=== PATIENT | male | born 1950 | race Caucasian/White ===

== ENCOUNTER 2017-07-19 07:35 | Day surgery (SDC) | payer OTHER, SELFPAY ==
[2017-07-19 08:16] VITALS: BP 150/88; PULSE 68; RESP 15; TEMP 35.9; O2SAT 96; BMI 29.9
[2017-07-19] MEDS: SODIUM CHLORIDE 0.9% 1,000 ML 200 ML IV (08:35)
--- NOTE | 2017-07-19 09:39 | PM.HP.1 ---
History of Present Illness Date Patient Seen: 07/19/17 Time Patient Seen: 09:21 Chief complaint: colonoscopy [id number] Narrative: Very pleasant 66-year-old man here for screening colonoscopy. He denies any problems or symptoms related to the function of his GI tract. He reports his last colonoscopy was approximately 7 years ago Patient History Family & Social History Social History: household members spouse Meds Home Medications Medication Instructions Recorded Confirmed Type aspirin [Aspir-81] 81 mg PO DAILY 07/18/17 07/19/17 History atorvastatin 10 mg PO DAILY 07/18/17 07/19/17 History bupropion HCl 150 mg PO QAM 07/18/17 07/19/17 History naproxen 250 mg PO TID 07/18/17 07/19/17 History omeprazole 20 mg PO DAILY 07/18/17 07/19/17 History Allergies Allergy/AdvReac Type Severity Reaction Status Date / Time No Known Allergies Allergy Uncoded 05/16/17 13:06 Review of Systems Review of Systems All systems reviewed & are unremarkable except as noted in HPI and below Exam Vital Signs (past 8 hours): Vital Signs - 8 hr 07/19/17 08:16 Temperature 96.6 F L Pulse Rate 68 Respiratory Rate 15 Blood Pressure 150/88 H Pulse Oximetry 96 Pulse Oximetry 96 Oxygen Delivery Method Room Air Narrative Exam Narrative: Very pleasant well-nourished well-developed gentleman in no distress HEENT: Normocephalic and atraumatic, pupils equal round reactive to light accommodation with anicteric sclera Lungs: Clear bilaterally Heart: Regular rate and rhythm Abdomen: Soft, nontender, active bowel sounds Extremities: Warm well perfused Assessment & Plan Plan: Assessment/Plan Narrative: Very pleasant 66-year-old gentleman with no family history of colon cancer and no personal history of polyps here for screening colonoscopy. We discussed risks and benefits of the procedure the patient expressed a desire to continue
--- NOTE | 2017-07-19 09:42 | P.HP_ITS ---
History of Present Illness Date Patient Seen: 07/19/17 Time Patient Seen: 09:21 Chief complaint: colonoscopy [id number] Narrative: Very pleasant 66-year-old man here for screening colonoscopy. He denies any problems or symptoms related to the function of his GI tract. He reports his last colonoscopy was approximately 7 years ago Patient History Family & Social History Social History: household members spouse Meds Home Medications Medication Instructions Recorded Confirmed Type aspirin [Aspir-81] 81 mg PO DAILY 07/18/17 07/19/17 History atorvastatin 10 mg PO DAILY 07/18/17 07/19/17 History bupropion HCl 150 mg PO QAM 07/18/17 07/19/17 History naproxen 250 mg PO TID 07/18/17 07/19/17 History omeprazole 20 mg PO DAILY 07/18/17 07/19/17 History Allergies Allergy/AdvReac Type Severity Reaction Status Date / Time No Known Allergies Allergy Uncoded 05/16/17 13:06 Review of Systems Review of Systems All systems reviewed & are unremarkable except as noted in HPI and below Exam Vital Signs (past 8 hours): Vital Signs - 8 hr 3 07/19/17 08:16 Temperature 96.6 F L Pulse Rate 68 Respiratory Rate 15 Blood Pressure 150/88 H Pulse Oximetry 96 Pulse Oximetry 96 Oxygen Delivery Method Room Air Narrative Exam Narrative: Very pleasant well-nourished well-developed gentleman in no distress HEENT: Normocephalic and atraumatic, pupils equal round reactive to light accommodation with anicteric sclera Lungs: Clear bilaterally Heart: Regular rate and rhythm Abdomen: Soft, nontender, active bowel sounds Extremities: Warm well perfused Assessment & Plan Plan: Assessment/Plan Narrative: Very pleasant 66-year-old gentleman with no family history of colon cancer and no personal history of polyps here for screening colonoscopy. We discussed risks and benefits of the procedure the patient expressed a desire to continue
[2017-07-19] MEDS: fentaNYL 250 MCG/5 ML INJ IV (09:56)
[2017-07-19] MEDS: MIDAZOLAM 5 MG/5 ML VIAL IV (09:57)
--- NOTE | 2017-07-19 10:06 | PM.OP.1 ---
Operative Date/Time/Diagnoses - Date of procedure: 07/19/17 Time of procedure: 10:06 Post-op diagnosis: same Procedure & Clinicians Procedure: Colonoscopy to the cecum Same procedure as scheduled: Yes Indications: Last colonoscopy 7 years ago Surgeon: Cindy Contreras Click Yes if Unassisted: Yes Anesthesia Type: Sedation (Versed 5 mg, fentanyl 200 mcg) Operative Notes Findings: 1. Excellent prep 2. No polyps or mass lesions 3. No AV malformations 4. Minimal diverticulosis limited the sigmoid region 5. Grade 1-2 internal hemorrhoids Closure Type: not applicable Specimen(s): none sent Procedure in detail: After obtaining informed consent, the patient was brought to the GI suite and placed in the left lateral decubitus position on the examination table. After placement of appropriate monitors, the patient was given incremental doses of Versed and Fentanyl until an appropriate level of sedation was achieved. A time out was held per SCOAP protocol. A digital rectal examination was performed and did not reveal any masses or obstructing lesions. The colonoscope was gently passed into the patient's anus and the entire colon navigated to the level of the cecum with minimal difficulty. Once in the cecum, the scope was withdrawn being sure to go before and beyond all mucosal folds and prominences and get an excellent examination. The findings are noted above. At the level of the rectal vault, the scope was retroflexed and the internal anal canal was examined. The scope was straightened and air aspirated from the colon. The instrument was removed from the patient's body and the procedure was concluded. The patient was allowed to awaken from sedation without difficulty and taken to the post-anesthesia care unit in good condition. Total sedation time 18 min Total withdrawal time 12 min Complications: none Condition: stable Disposition: PACU Plan for aftercare: 1. Discharge to home 2. Plan for next colonoscopy in 10 years or as clinically indicated
[2017-07-19 10:07] VITALS: BP 113/73; PULSE 65; RESP 10; TEMP 36.2; O2SAT 96
[2017-07-19 10:12] VITALS: BP 109/70; PULSE 60; RESP 8; O2SAT 95
[2017-07-19 10:17] VITALS: BP 116/74; PULSE 62; RESP 10; TEMP 36.1; O2SAT 96
[2017-07-19 10:25] VITALS: BP 130/83; PULSE 69; RESP 11; TEMP 36.2; O2SAT 96
[2017-07-19 10:44] VITALS: BP 124/83; PULSE 69; RESP 18; TEMP 36.2; O2SAT 95
== END 2017-07-19 10:50 | disposition home or self-care (01) ==
PROVIDERS: Family Provider Family Medicine; PCP Family Medicine; Visit Provider Surgery
PROC: 0DJD8ZZ Inspection of Lower Intestinal Tract, Via Natural or Artificial Opening Endoscopic (ICD-10-PCS; CPT 45378; principal; 2017-07-19 08:45)
DX: Z12.11 Encounter for screening for malignant neoplasm of colon (principal); K57.30 Diverticulosis of large intestine without perforation or abscess without bleeding; K64.1 Second degree hemorrhoids
CPT/HCPCS: G0121; 99152; J2250; J3010

== ENCOUNTER → 2018-09-06 09:42 | Outpatient (CLI) | payer OTHER, SELFPAY ==
[2018-09-06 10:02] LABS: Bacteria Urine None Seen
[2018-09-06 10:59] LABS: Appearance Urine UA CLEAR; Bilirubin Urine UA NEGATIVE (NEGATIVE); Color Urine UA YELLOW; Glucose Urine UA NEGATIVE (Negative); Ketones Urine UA NEGATIVE (NEGATIVE); Leukocyte Esterase Urine UA TRACE (NEGATIVE); Nitrite Urine UA NEGATIVE (Negative); Occult Blood Urine UA NEGATIVE (Negative); Protein Urine UA NEGATIVE (Negative); Specific Gravity Urine UA 1.015 (1.000-1.035); Urobilinogen Urine UA 0.2 E.U./dL (0.2)
[2018-09-06 11:01] LABS: Add Manual Diff / Slide Review NO; Basophils Absolute Auto 0 /uL (0-100); Basophils Percent Auto 0.7 % (0-2); Eosinophils Absolute Auto 100 /uL (0-450); Eosinophils Percent Auto 3.4 % (2-4); Hematocrit 40.2 % (41-53); Hemoglobin 13.7 g/dL (13.5-17.5); Lymphocytes Absolute Auto 1200 /uL (1100-4500); Lymphocytes Percent Auto 32.4 % (25-40); Mean Corpuscular Hemoglobin 30.3 PG (26-34); Mean Corpuscular Volume 89.1 fL (80-100); Monocytes Absolute Auto 300 /uL (0-900); Monocytes Percent Auto 8.2 % (3-14); Neutrophils Absolute Auto 2000 /uL (1500-7000); Neutrophils Percent Auto 55.3 % (50-75); Platelet Count 195 X10^3/uL (150-400); Red Blood Cell Count 4.51 X10^6/uL (4.5-5.9); Red Cell Distribution Width 13.5 % (11.6-14.8); White Blood Cell Count 3.7 X10^3/uL (4.5-11.0)
[2018-09-06 11:10] LABS: Hemoglobin A1C% w Est Avg Glu 5.3 % (4.0-6.0)
[2018-09-06 11:21] LABS: BUN Creatinine Ratio 21.3 (6-22); Blood Urea Nitrogen 17 mg/dL (9-20); Calcium 9.2 mg/dL (8.4-10.2); Carbon Dioxide 29 mmol/L (22-32); Chloride 105 mmol/L (98-107); Estimated Glomerular Filt Rate > 60.0 mL/min (>60); Glucose 111 mg/dL (80-110); HEMOLYSIS < 15 (0-50); Potassium 3.8 mmol/L (3.4-5.1); Sodium 141 mmol/L (137-145)
[2018-09-06 11:28] LABS: Transferrin 262 mg/dL (206-381)
[2018-09-06 11:33] LABS: Mucus Urine 1+ (Negative); RBC Urine 0-1/HPF (0-5/HPF); Squamous Epithelial Cell Urine 0-1 /HPF (0-5/HPF); WBC Urine 5-10/HPF (0-5/HPF)
== END ==
PROVIDERS: PCP Student in an Organized Health Care Education/Training Program; Visit Provider Orthopaedic Surgery
DX: E61.1 Iron deficiency (principal); N39.0 Urinary tract infection, site not specified; R73.9 Hyperglycemia, unspecified; Z01.818 Encounter for other preprocedural examination
CPT/HCPCS: 36415; 80048; 81001; 83036; 84466; 85025; 93005; 93010

== ENCOUNTER 2018-09-27 08:58 | Observation (INO) | payer OTHER, SELFPAY ==
[2018-09-16 09:38] VITALS: BMI 30.9
[2018-09-26] VITALS (14 sets, daily range): BP systolic 109–155; BP diastolic 57–98; PULSE 61–89; RESP 15–18; TEMP 35.6–37; O2SAT 93–98; BMI 30.4
--- NOTE | 2018-09-26 06:00 | DI.RAD.S_ITS ---
PROCEDURE: XR KNEE LT 1TO2V INDICATIONS: post op TKA TECHNIQUE: 2 view(s) of the knee acquired. COMPARISON: [facility], , KNEE 1-2 VIEWS RIGHT, 01/30/2013, 10:30. [facility], , KNEE 3V RIGHT, 01/04/2012, 6:57. FINDINGS: Bones: Patient is status post knee joint arthroplasty. Hardware components are in expected positions. Visualized bony structures are intact. Soft tissues: Overlying postoperative changes are noted. IMPRESSION: Normal alignment immediately after left total knee arthroplasty. Dictated by: James Hansen M.D. on 09/26/2018 at 11:19 Approved by: James Hansen M.D. on 09/26/2018 at 11:20
[2018-09-26] MEDS: ACETAMINOPHEN 325 MG TABLET 975 MG PO ×3 (06:48→21:45)
[2018-09-26] MEDS: PREGABALIN 75 MG CAPSULE PO (06:49)
[2018-09-26] MEDS: CELECOXIB 200 MG CAPSULE PO (06:49)
[2018-09-26] MEDS: LACTATED RINGERS 1,000 ML 42 ML IV ×2 (07:15→09:19)
--- NOTE | 2018-09-26 07:49 | SUR.OPER ---
Preoperatively: surgeon saw patient and their open abrasion on their left second toe. No new orders.
--- NOTE | 2018-09-26 07:50 | PM.PREOP ---
Pre-operative Note Interval Note History & Physical reviewed/Exam performed by Physician: Yes Changes to H&P: Yes H&P completed within 30 days and has changed as indicated here:: Recently badly stubbed toe on left foot. Swollen and ecchymotic, but no open wound, no infection.
[2018-09-26] MEDS: fentaNYL 100 MCG/2 ML INJ 50 MCG IV ×2 (07:54→10:27)
[2018-09-26] MEDS: MIDAZOLAM 2 MG/2 ML VIAL IV (07:54)
[2018-09-26] MEDS: CEFAZOLIN 2 GM/100 ML FROZ.PIGGY IV (08:07)
--- NOTE | 2018-09-26 08:09 | SUR.PREOP ---
Block start time [0754] . Monitoring initiated and maintained throughout procedure. Oxygen and medications given per anesthesiologist instructions. Patient remained stable throughout procedure, no adverse reactions noted. Block end time [0758].
--- NOTE | 2018-09-26 08:37 | SUR.OPER ---
Supine on padded OR bed. Pillow under head, arms secured on padded armboards <90 degree abduction. Safety belt across torso. Non-operative leg secured with tape over blanket over lower leg. Operative leg secured in De[employer]o positioner. Foam padded brace at thigh of operative leg.
[2018-09-26] MEDS: TRANEXAMIC ACID 1,000 MG VIAL 1000 MG INJ ×2 (08:45→09:20)
[2018-09-26] MEDS: BUPIVACAINE 0.25% W/ EPI 30 ML VIAL 60 ML INJ (08:45)
[2018-09-26] MEDS: BUPIVACAINE LIPOSOME 266 MG/20 ML VIAL INJ (08:46)
[2018-09-26] MEDS: MORPHINE 4 MG/ML INJ INJ (08:46)
--- NOTE | 2018-09-26 09:59 | PM.OP.1 ---
Operative Date/Time/Diagnoses Date of procedure: 09/26/18 Time of procedure: 09:40 Pre-op diagnosis: Left knee osteoarthritis Post-op diagnosis: same Procedure & Clinicians Procedure: Left total knee replacement Same procedure as scheduled: Yes Indications: The patient has had progressively worsening left knee pain with radiographic changes consistent with arthritis. Non-operative management has failed and the patient has requested total knee replacement. The risks, benefits and alternatives to surgery were discussed with the patient prior to proceeding. Risks discussed included, but were not limited to, failure to relieve pain, stiffness, infection, nerve damage, deep venous thrombosis, pulmonary embolism, stroke, coma, heart attack, permanent paralysis and , as well as the potential need for eventual revision of the prosthetic. Surgeon: Catalino Cisneros Bridge Crane Operator: Yeimy Reddy Click Yes if Unassisted: No Anesthesia Type: Spinal, Sedation, Peripheral nerve block and Local Operative Notes Findings: Significant medial and patellofemoral osteoarthritis with relative sparing of the lateral compartment. Closure Type: primary Specimen(s): none sent Prosthetic devices, grafts, tissues, transplants, or devices: Implants used in this procedure were manufactured by the [employer] and included the BCS II Journey total knee replacement with a size 7 left Oxinium femoral component, a size 6 left non porous tibial base plate, a 9 mm cross-linked polyethylene tibial insert and a 38 mm oval Sandy II patella. Applied: implant(s) Estimated Blood Loss (mL): 50 Blood products transfused: none Tourniquet time (min): 59 Procedure in detail: The patient was seen in the pre-operative area, where the left knee was identified as the operative site and this was marked with my initials. The patient received pre-operative antibiotics, and was taken to the operating room and placed on the operative table in the supine position. After satisfactory anesthesia, a full time babysitter out was performed. The left leg was encircled with a tourniquet about the proximal thigh, and the leg was prepared from the toes to the tourniquet with ChloroPrep in the usual fashion and draped through sterile drapes. The leg was elevated and exsanguinated with Eschmark bandage and the tourniquet inflated to 250 mmHg pressure. The knee was approached through an approximately 18 cm incision centered over the patella and carried into the knee through a medial parapatellar arthrotomy. The anterior osteophytes and soft tissues were removed. The rotational landmarks of Sanborn's line and the transepicondylar axis were marked on the femur with electrocautery, and intramedullary guide holes for the femur and tibia were created. The distal femoral cut was made in 6 degrees of valgus using the intramedullary guide at the primary cut setting. The proximal tibial cut was then made using the intramedullary guide, taking 9 mm of bone off the less involved side. The extension gap was checked and the rotation of the femoral component confirmed with the gap balancing blocks. The anterior, posterior and chamfer cuts were then made. The posterior osteophytes and soft tissues were then removed. The posterior capsule was injected with part of a mixture of 50 ml 0.25% Marcaine mixed with 20 ml Exparel and 4 mg of morphine for post-operative pain control. The remainder of this mixture was injected into the capsule and subcutaneous tissues during cement curing. The tibia was prepared with the rotation set by an extra medullary guide. Trial tibial and femoral components were then placed and the intercondylar notch cut through the femoral trial. Range of motion was 0-135 degrees, with good stability throughout the range. The patella was then cut to accommodate the patellar prosthetic. There was no need for a lateral release. The trials were then removed, and the femoral hole plugged with a bone plug. The bone was prepared with pulsatile lavage, and dried with a sponge. Cement was applied and the final prosthetics placed. Excess cement was removed during and after cement curing. After confirming there was no extruded cement posteriorly, the final tibial insert was placed. The knee was copiously irrigated and the tourniquet deflated. Hemostasis was obtained. The capsule was closed with interrupted # 2 polyester sutures. The subcutaneous layer was closed with 3-0 Vicryl, and the skin with a running 3-0 V-Lock suture and SteriStrips. An Aquacel Ag dressing was applied and the patient was taken to recovery having tolerated the procedure well. Complications: none Condition: stable Disposition: PACU Plan for aftercare: The patient will be maintained on a standard total knee replacement protocol with weight bearing as tolerated. The patient will receive aspirin and sequential compression devices for DVT prophylaxis. The patient will be discharged home when safe for the home environment.
[2018-09-26] MEDS: fentaNYL 100 MCG/2 ML INJ IV (10:22)
[2018-09-26] MEDS: LACTATED RINGERS 1,000 ML 125 ML IV ×2 (11:43→19:33)
[2018-09-26] MEDS: OXYCODONE IR 5 MG TABLET PO ×4 (12:16→23:00)
--- NOTE | 2018-09-26 15:38 | PT.IIE ---
Current Diagnoses Unilateral primary osteoarthritis, left knee (09/26/18) Surgery Performed Operation Date: 09/26/18 07:45 Actual Procedures p Total Knee Arthroplasty(Left) - Catalino Cisneros MD Surgical History (Last Updated 09/16/18 @ 14:08 by Yana Allison RN) H/O vasectomy (Acute) History of arthroplasty of right knee (Acute ~2012) Hx of cholecystectomy (Acute ~2010) Medical History (Last Updated 09/16/18 @ 14:08 by Yana Allison RN) Depression (Acute) Former smoker (Acute) GERD (gastroesophageal reflux disease) (Acute) HLD (hyperlipidemia) (Acute) Migraines (Acute) Osteoarthritis (Acute) Physical Therapy Inpatient Evaluation/Re-Eval M1 PT/OT-IP Prior Functional Status Start: 09/26/18 17:21 Freq: NEEDED Status: Active Protocol: Document 09/26/18 15:38 AB (Rec: 09/26/18 17:32 AB [id number]) Medical Review Prior Functional Status Medical History Reviewed Yes Communication able to make needs known Mobility and Gait pt stated that he is independent with all mobilities and ambulation without AD Social History Household Members spouse children Living Arrangements House Number of Floors (Floors) Two Floors Number of Stairs To Enter/Railing? pt plans to stay on the main level of the house has 3 steps to enter with R rail ascending Home Environment High Toilet Tub/Shower Home Equipment Front Wheel Walker Straight Cane Additional Social History Comment spouse stated that pt was able to do a 9 mile hike 2 weeks prior to surgery pt's spouse and daughter will assist pt at home. M2 PT-IP Current Condition Start: 09/26/18 17:21 Freq: NEEDED Status: Active Protocol: Document 09/26/18 15:38 AB (Rec: 09/26/18 17:32 AB [id number]) Physical Therapy Current Condition Current Condition Evaluation Date 09/26/18 Treatment Diagnosis s/p L TKA; difficulty in walking Onset Date 09/26/18 Weight Bearing Status Weight Bearing Status Weight Bear as Tolerated M3 PT-IP Subjective Start: 09/26/18 17:21 Freq: NEEDED Status: Active Protocol: Document 09/26/18 15:38 AB (Rec: 09/26/18 17:32 AB [id number]) Subjective Physical Therapy Visit Type Type Initial Evaluation Visit Start Time 15:38 Visit Stop Time 16:07 Total Visit Minutes 29 Number of BRIQUETTE MACHINE OPERATOR HELPER Visits 0 Physical Therapy Visit Comments Patient Comments pt agreeable to do PT Therapy Pain Assessment Pain When Pain Assessed At Rest Pain Present Pain Present Pain Reported Location Left Knee Intensity 2 Scale Used increases to 4/10 with weight bearing Pain Management Techniques Apply Cold Timing of Activity with Medications M4 PT-IP Mobility and Gait Start: 09/26/18 17:21 Freq: NEEDED Status: Active Protocol: Document 09/26/18 15:38 AB (Rec: 09/26/18 17:32 AB [id number]) PT-Bed Mobility Assessment Supine to Sit Supine to Sit Standby Assistance Sit to Supine Sit to Supine Standby Assistance PT-Transfer Assessment Sit to and From Stand Sit to and from Stand Minimal Assistance 1 Person Assistance Use of Upper Extremities Equipment Transfer Assistive Device Gait Belt Front Wheeled Walker Comments Mobility Comments pt completed supine to sit SBA and cues. agreed to ambulate in room but requested to go back to bed after. pt completed sit to supine SBA. pt used UE to lift LLE up into the bed. cues provided for techniques Gait Assessment Gait Gait Assistance Required: Minimum Assistance Distance (Feet) 40 Able to Maintain Weight Bearing Status Yes During Gait Assistive Devices Assistive Device Gait Belt Front Wheeled Walker Orthotic/Prosthetic Devices or Brace: No Gait Deviations General Gait Pattern Antalgic Decreased Stride Length Decreased Feet Clearance Step-to Gait Factors Limiting Gait Function Factors Limiting Gait Function Decreased Activity Tolerance Decreased Strength Limited Range of Motion Pain Poor Balance Poor Safety Awareness Comments Gait Comments pt ambulated in room using FWW min A ~40 ft and cues for L quads activation. PT-Balance Assessment Sitting Balance and Reactions Static Sitting Balance Ability Good Dynamic Sitting Balance Ability Good Standing Balance and Reactions Static Standing Balance Ability Fair Dynamic Standing Balance Ability Fair Device Used FWW M5 PT-IP Objective Assessments Start: 09/26/18 17:21 Freq: NEEDED Status: Active Protocol: Document 09/26/18 15:38 AB (Rec: 09/26/18 17:32 AB [id number]) Orientation Orientation/Cognition Level of Alertness Alert Orientation Name Age Birthday Place Situation Language Function Ability No Deficits Noted Safety Awareness Understands Safety Issues Memory Description No Deficits Noted Gross Range of Motion Lower Extremity ROM Assessment Left Impaired Impairments L knee flexion ~ 80 deg Strength Lower Extremity Strength Assessment Left Impaired Hip 4/5 Knee 4-/5 Coordination Assessment Gross Coordination Gross Coordination WNL Sensation Assessment Sensation Gross Sensation WNL Muscle Tone Muscle Tone WNL Yes M6 PT-IP Treatment Start: 09/26/18 17:21 Freq: NEEDED Status: Active Protocol: Document 09/26/18 15:38 AB (Rec: 09/26/18 17:32 AB [id number]) Physical Therapy Treatment Exercises Exercises Quad Sets Heel Slides Education Education Provided Precautions Weight Bearing Status Post-Op Packet Safety M7 PT-IP Assessment and Plan Start: 09/26/18 17:21 Freq: NEEDED Status: Active Protocol: Document 09/26/18 15:38 AB (Rec: 09/26/18 17:32 AB [id number]) PT Summary Assessment and Plan Potential Rehabilitation Potential Good Status of Condition at Evaluation Stable Summary Impairments Pain ROM Strength Balance Bed Mobility Transfers Gait Activity Tolerance Assessment Summary pt requiring min A with ambulation using FWW. pt plans to go home and family to assist him. will conduct caregiver training if appropraite and also will complete stair training prior to d/c home. pt stated that he is set up for outpt PT. Goals Bed Mobility Goal Independent Transfer Goal Standby Assistance Front Wheeled Walker Gait Goal Standby Assistance Front Wheel Walker Gait Distance 200 Other Goals up/down 3 steps with R rail ascending SBA Days to Meet Goals 5 Frequency of Treatment Frequency Of Treatment Twice a Day Treatment Plan Physical Therapy Treatment Plan Bed Mobility Training Transfer Training Gait Training Therapeutic Exercise Balance Retraining Post Op Education Discharge Planning Hot or Cold Pack Neuromuscular Re-ed Coordination Retraining Manual Therapy Other Recommendations and Next Treatment ambualtion, caregiver training Focus , stair training Recommendations To Nursing Amount of Assist Needed 1 Person Assist Discharge Recommendations PT Discharge Recommendations Home with Assistance Outpatient PT
[2018-09-26] MEDS: PANTOPRAZOLE 20 MG TABLET PO (17:28)
[2018-09-26] MEDS: HYDROMORPHONE 0.5 MG INJ IV (21:46)
[2018-09-26] MEDS: DOCUSATE 100 MG CAPSULE PO (23:01)
[2018-09-26] MEDS: ASPIRIN EC 81 MG TABLET PO (23:01)
[2018-09-27] MEDS: OXYCODONE IR 5 MG TABLET PO (01:33)
[2018-09-27] MEDS: hydrOXYzine pamoate 25 MG CAPSULE PO (01:35)
[2018-09-27] MEDS: LACTATED RINGERS 1,000 ML 125 ML IV (03:52)
[2018-09-27 04:00] VITALS: BP 136/74; PULSE 71; RESP 16; TEMP 37; O2SAT 96
[2018-09-27] MEDS: OXYCODONE IR 10 MG TABLET PO ×4 (05:21→14:31)
[2018-09-27] MEDS: PANTOPRAZOLE 20 MG TABLET PO (05:21)
[2018-09-27 07:00] VITALS: BP 134/68; PULSE 74; RESP 17; TEMP 37.1; O2SAT 97
[2018-09-27] MEDS: HYDROMORPHONE 0.5 MG INJ IV (07:55)
[2018-09-27] MEDS: ACETAMINOPHEN 325 MG TABLET 975 MG PO ×2 (08:52→14:33)
[2018-09-27] MEDS: MELOXICAM 7.5 MG TABLET 15 MG PO (08:52)
[2018-09-27] MEDS: ASPIRIN EC 81 MG TABLET PO (08:53)
[2018-09-27] MEDS: DOCUSATE 100 MG CAPSULE PO (08:53)
[2018-09-27] MEDS: ATORVASTATIN 10 MG TABLET 5 MG PO (08:53)
[2018-09-27] MEDS: POLYETHYLENE GLYCOL 3350 17 GM POWD.PACK PO (08:54)
--- NOTE | 2018-09-27 09:13 | PM.DS.1 ---
History of Present Illness Date Patient Seen: 09/27/18 Time Patient Seen: 08:45 Chief complaint: *OPB* [id number] Narrative: History and physical are contained in the chart previously completed note. Please refer to that note for this information. Discharge Providers Discharge Date: 09/27/18 Primary care physician: Lawanda Powers MD Consults: 09/26/18 11:26 Consult to Discharge Planning Routine Comment: Consult to Physical Therapy Evaluate & Treat Comment: Physician Instructions: postop TKA protocol Consult to Respiratory Therapy Evaluate & Treat Comment: Physician Instructions: Evaluate and treat Discharge provider: Catalino Cisneros MD Summary Discharge Diagnosis: 1. Left knee osteoarthritis 2. Post hemorrhagic and Hospital Course: The patient was admitted to the hospital and taken directly to the operating room where he underwent a left total knee replacement without complications. He had a difficult 1st postoperative night with a great deal of discomfort and very little sleep. On the morning of the 1st postoperative day it is questionable whether he will be able to go home. We will initiate physical therapy and if things go better today he will be discharged this afternoon. If not he will be admitted on observation status overnight and likely discharged tomorrow. Status at Discharge Cognitive/behavioral status at discharge: oriented Functional status at discharge: uses cane/walker Overall status at discharge: patient is progressing back to baseline Time Spent with Patient Less than 30 minutes Exam Vital Signs (past 8 hours): - 09/27/18 04:00 09/27/18 07:00 Temperature 98.6 F 98.7 F Pulse Rate 71 74 Respiratory Rate 16 17 Blood Pressure 136/74 134/68 Pulse Oximetry 96 97 Oxygen Delivery Method Room Air Oxygen Flow Rate 0 Narrative Exam Narrative: Left knee wound is dressed with no drainage on the bandage. Calf is soft. Light touch and motion are intact in the left lower extremity. Objective Labs Result Diagrams: 09/27/18 06:20 Labs: Laboratory Results - last 24 hr 09/27/18 06:20 Hgb 12.0 L Hct 35.0 L Discharge Plan Discharge Plan Patient Disposition: Home Discharge Med Rec/Prescriptions Prescriptions: New acetaminophen 325 mg Tablet 975 mg PO TID 30 Days Qty: 270 RF: 0 aspirin 81 mg Tablet,Delayed Release (Dr/Ec) 81 mg PO BID 42 Days Qty: 84 RF: 0 oxycodone 5 mg Tablet 5 mg PO Q3HR PRN (Reason: Pain, Moderate (4-6)) Qty: 40 RF: 0 hydroxyzine pamoate 25 mg Capsule 25 mg PO Q6HR PRN (Reason: Nausea) Qty: 40 RF: 0 Continued atorvastatin 10 mg Tablet 5 mg PO QAM RF: 0 omeprazole 20 mg Capsule,Delayed Release(Dr/Ec) 20 mg PO DAILY RF: 0 ibuprofen [Advil] 200 mg Tablet 400 mg PO DAILY RF: 0 Discontinued aspirin [Aspir-81] 81 mg Tablet,Delayed Release (Dr/Ec) 81 mg PO DAILY RF: 0 Follow up/Referrals: Lawanda Powers MD [Primary Care Provider] - Catalino Cisneros MD [Physician] - 3-5 Days Discharge Orders: Discharge (Order); Ordered 09/27/18 Ordered By: Catalino Cisneros Provider Discharge Instructions Diet: Diet as Tolerated and Regular Activity: You may bear weight as tolerated on your left knee. Cold/Heat Therapy: Apply ice to the left knee for 15 minutes of every hour as needed for pain relief. Skin/Wound/Dressing Care Report to your healthcare provider any signs of infection, such as:: chills, fever, night sweats, increased pain, unusual drainage and unusual redness Dressing: You may remove the Júnior wrap 3 days after surgery and shower normally. Leave the deeper dressing in place until follow-up. If the central strip of deeper dressing becomes saturated with either water or blood please call the office to have it changed. Visit Report/Discharge Packet Instructions: DI for Knee Replacement Stand Alone Forms: Surgery Discharge Discharge Data Primary Care Provider: Lawanda Powers Attending Provider: Catalino Cisneros
--- NOTE | 2018-09-27 10:30 | PT.IPTN ---
Current Diagnoses Unilateral primary osteoarthritis, left knee (09/26/18) Surgery Performed Operation Date: 09/26/18 07:45 Actual Procedures p Total Knee Arthroplasty(Left) - Catalino Cisneros MD Physical Therapy Treatment Note M2 PT-IP Current Condition Start: 09/26/18 17:21 Freq: NEEDED Status: Active Protocol: Document 09/26/18 15:38 AB (Rec: 09/26/18 17:32 AB [id number]) Physical Therapy Current Condition Current Condition Evaluation Date 09/26/18 Treatment Diagnosis s/p L TKA; difficulty in walking Onset Date 09/26/18 Weight Bearing Status Weight Bearing Status Weight Bear as Tolerated M3 PT-IP Subjective Start: 09/26/18 17:21 Freq: NEEDED Status: Active Protocol: Document 09/27/18 10:30 GGD (Rec: 09/27/18 12:07 GGD [id number]) Subjective Physical Therapy Visit Type Type Treatment Note Visit Start Time 10:05 Visit Stop Time 10:30 Total Visit Minutes 25 Number of RESEARCH ASSISTANT Visits 1 Physical Therapy Visit Comments Patient Comments Pt willing to work with therapy. Therapy Pain Assessment Pain When Pain Assessed During Mobility Pain Present Pain Present Pain Reported Location Left Knee Intensity 5 Scale Used Numeric (1 - 10) M4 PT-IP Mobility and Gait Start: 09/26/18 17:21 Freq: NEEDED Status: Active Protocol: Document 09/27/18 10:30 GGD (Rec: 09/27/18 12:07 GGD [id number]) PT-Bed Mobility Assessment Supine to Sit Supine to Sit Standby Assistance Scooting Scooting to Edge of Bed Standby Assistance PT-Transfer Assessment Sit to and From Stand Sit to and from Stand Standby Assistance Use of Upper Extremities Equipment Transfer Assistive Device Gait Belt Front Wheeled Walker Orthotic/Prosthetic Devices or Brace: No Transfers Transfer Destination Chair Transfer Ability Level of Assist Contact Guard Assistance Gait Assessment Gait Gait Assistance Required: Contact Guard Assist Distance (Feet) 75 Able to Maintain Weight Bearing Status Yes During Gait Assistive Devices Assistive Device Gait Belt Front Wheeled Walker Orthotic/Prosthetic Devices or Brace: No Gait Deviations General Gait Pattern Antalgic Decreased Stride Length Decreased Feet Clearance Step-to Gait Factors Limiting Gait Function Factors Limiting Gait Function Decreased Activity Tolerance Decreased Strength Limited Range of Motion Pain Poor Balance Poor Safety Awareness M5 PT-IP Objective Assessments Start: 09/26/18 17:21 Freq: NEEDED Status: Active Protocol: Document 09/26/18 15:38 AB (Rec: 09/26/18 17:32 AB [id number]) Orientation Orientation/Cognition Level of Alertness Alert Orientation Name Age Birthday Place Situation Language Function Ability No Deficits Noted Safety Awareness Understands Safety Issues Memory Description No Deficits Noted Gross Range of Motion Lower Extremity ROM Assessment Left Impaired Impairments L knee flexion ~ 80 deg Strength Lower Extremity Strength Assessment Left Impaired Hip 4/5 Knee 4-/5 Coordination Assessment Gross Coordination Gross Coordination WNL Sensation Assessment Sensation Gross Sensation WNL Muscle Tone Muscle Tone WNL Yes M6 PT-IP Treatment Start: 09/26/18 17:21 Freq: NEEDED Status: Active Protocol: Document 09/27/18 10:30 GGD (Rec: 09/27/18 12:07 GGD [id number]) Physical Therapy Treatment Exercises Exercises Ankle Pumps Quad Sets Heel Slides Seated Knee Flexion/Extension Education Education Provided Safety M7 PT-IP Assessment and Plan Start: 09/26/18 17:21 Freq: NEEDED Status: Active Protocol: Document 09/27/18 10:30 GGD (Rec: 09/27/18 12:07 GGD [id number]) PT Summary Assessment and Plan Summary Assessment Summary Pt improved with mobility. He had good pain control with gait. He ambulated with a step through gait pattern. Pt needs to stair mobility before D/C home. Frequency of Treatment Frequency Of Treatment Twice a Day Treatment Plan Physical Therapy Treatment Plan Bed Mobility Training Transfer Training Gait Training Therapeutic Exercise Balance Retraining Post Op Education Discharge Planning Hot or Cold Pack Neuromuscular Re-ed Coordination Retraining Manual Therapy Other Recommendations and Next Treatment stair training Focus Recommendations To Nursing Amount of Assist Needed 1 Person Assist Discharge Recommendations PT Discharge Recommendations Home with Assistance Outpatient PT
[2018-09-27 10:54] VITALS: PULSE 81; O2SAT 94
[2018-09-27 12:00] VITALS: BP 154/83; PULSE 77; RESP 18; TEMP 37; O2SAT 96
--- NOTE | 2018-09-27 13:40 | PT.IPTN ---
Current Diagnoses Unilateral primary osteoarthritis, left knee (09/26/18) Surgery Performed Operation Date: 09/26/18 07:45 Actual Procedures p Total Knee Arthroplasty(Left) - Catalino Cisneros MD Physical Therapy Treatment Note M2 PT-IP Current Condition Start: 09/26/18 17:21 Freq: NEEDED Status: Active Protocol: Document 09/26/18 15:38 AB (Rec: 09/26/18 17:32 AB [id number]) Physical Therapy Current Condition Current Condition Evaluation Date 09/26/18 Treatment Diagnosis s/p L TKA; difficulty in walking Onset Date 09/26/18 Weight Bearing Status Weight Bearing Status Weight Bear as Tolerated M3 PT-IP Subjective Start: 09/26/18 17:21 Freq: NEEDED Status: Active Protocol: Document 09/27/18 13:40 GGD (Rec: 09/27/18 16:20 GGD [id number]) Subjective Physical Therapy Visit Type Type Treatment Note Visit Start Time 13:15 Visit Stop Time 13:40 Total Visit Minutes 25 Number of RIB STIFFENER AND HEEL DIPPER Visits 2 Physical Therapy Visit Comments Patient Comments Pt states he still having pain . Therapy Pain Assessment Pain When Pain Assessed During Mobility Pain Present Pain Present Pain Reported Location Left Knee Intensity 6 Scale Used Numeric (1 - 10) M4 PT-IP Mobility and Gait Start: 09/26/18 17:21 Freq: NEEDED Status: Active Protocol: Document 09/27/18 13:40 GGD (Rec: 09/27/18 16:20 GGD [id number]) PT-Bed Mobility Assessment Supine to Sit Supine to Sit Standby Assistance Sit to Supine Sit to Supine Standby Assistance Scooting Scooting to Edge of Bed Standby Assistance PT-Transfer Assessment Sit to and From Stand Sit to and from Stand Standby Assistance Use of Upper Extremities Equipment Transfer Assistive Device Gait Belt Front Wheeled Walker Orthotic/Prosthetic Devices or Brace: No Transfers Transfer Destination Chair Transfer Ability Level of Assist Contact Guard Assistance Gait Assessment Gait Gait Assistance Required: Contact Guard Assist Distance (Feet) 120 Able to Maintain Weight Bearing Status Yes During Gait Assistive Devices Assistive Device Gait Belt Front Wheeled Walker Orthotic/Prosthetic Devices or Brace: No Gait Deviations General Gait Pattern Antalgic Decreased Stride Length Decreased Feet Clearance Step-to Gait Factors Limiting Gait Function Factors Limiting Gait Function Decreased Activity Tolerance Decreased Strength Limited Range of Motion Pain Poor Balance Poor Safety Awareness Stair Climbing Assessment Evaluation Level of Assist On Stairs Standby Assistance Contact Guard Assistance Devices Stair Climbing Assistive Devices Right Railing Technique/Endurance Stair Climbing Direction Ascend and Descend Stair Climbing Technique Step to Step Number of Steps Climbed 3 Stair Climbing Set # Repetitions (reps) 2 M5 PT-IP Objective Assessments Start: 09/26/18 17:21 Freq: NEEDED Status: Active Protocol: Document 09/26/18 15:38 AB (Rec: 09/26/18 17:32 AB [id number]) Orientation Orientation/Cognition Level of Alertness Alert Orientation Name Age Birthday Place Situation Language Function Ability No Deficits Noted Safety Awareness Understands Safety Issues Memory Description No Deficits Noted Gross Range of Motion Lower Extremity ROM Assessment Left Impaired Impairments L knee flexion ~ 80 deg Strength Lower Extremity Strength Assessment Left Impaired Hip 4/5 Knee 4-/5 Coordination Assessment Gross Coordination Gross Coordination WNL Sensation Assessment Sensation Gross Sensation WNL Muscle Tone Muscle Tone WNL Yes M6 PT-IP Treatment Start: 09/26/18 17:21 Freq: NEEDED Status: Active Protocol: Document 09/27/18 13:40 GGD (Rec: 09/27/18 16:20 GGD [id number]) Physical Therapy Treatment Exercises Exercises Ankle Pumps Quad Sets Heel Slides Seated Knee Flexion/Extension Education Education Provided Safety M7 PT-IP Assessment and Plan Start: 09/26/18 17:21 Freq: NEEDED Status: Active Protocol: Document 09/27/18 13:40 GGD (Rec: 09/27/18 16:20 GGD [id number]) PT Summary Assessment and Plan Summary Assessment Summary Pt is SBA to [facility] with mobility . He is safe and stable with gait and stair mobility. He had good pain control with activity. He is safe for home D/C when medically stable. Frequency of Treatment Frequency Of Treatment Twice a Day Treatment Plan Physical Therapy Treatment Plan Bed Mobility Training Transfer Training Gait Training Therapeutic Exercise Balance Retraining Post Op Education Discharge Planning Hot or Cold Pack Neuromuscular Re-ed Coordination Retraining Manual Therapy Recommendations To Nursing Amount of Assist Needed 1 Person Assist Discharge Recommendations PT Discharge Recommendations Home with Assistance Outpatient PT
== END 2018-09-27 14:50 | disposition home or self-care (01) ==
LOC: OR 16:32
PROVIDERS: Admitting Provider Orthopaedic Surgery; PCP Student in an Organized Health Care Education/Training Program; Visit Provider Orthopaedic Surgery
PROC: 0SRD0JZ Replacement of Left Knee Joint with Synthetic Substitute, Open Approach (ICD-10-PCS; CPT 27447; principal; 2018-09-26 07:45)
DX: M17.12 Unilateral primary osteoarthritis, left knee (principal); G89.18 Other acute postprocedural pain
CPT/HCPCS: 27447; 36415; 64447; 64450; 73560; 85014; 85018; 97110; 97116; 97161; 97530; C1776; G0378; C9290; J0690; J1100; J1170; J2250; J2270; J2405; J2704; J3010

== ENCOUNTER → 2022-03-28 07:03 | Outpatient (CLI) | payer MEDICARE, SELFPAY ==
[2018-09-26 11:25] VITALS: BMI 30.4
--- NOTE | 2022-03-28 | DI.MRI.S_ITS ---
PROCEDURE: MR HEAD/BRAIN WO/W CON INDICATIONS: Other amnesia TECHNIQUE: Noncontrast axial T1 spin echo, axial T2 fast spin echo, sagittal and axial FLAIR, coronal T2 fast spin echo, axial gradient echo, axial diffusion and ADC through the brain. After the administration of contrast, axial and coronal and sagittal T1 spin echo with fat saturation through the brain. COMPARISON: None. FINDINGS: Image quality: Excellent. CSF spaces: Basal cisterns are patent. No extra-axial fluid collections. Ventricles are normal in size and shape. Brain: No midline shift. No intracranial bleeds or masses. No abnormal intracranial enhancement. There is cerebral volume loss for age. There is mild periventricular white matter chronic small vessel ischemic change. The brainstem appears normal. Diffusion-weighted images demonstrate no acute ischemic insults. No chronic ischemic insults. Normal intravascular flow voids are present. Skull and face: Calvarial marrow is normal in signal. Orbits appear normal. Sinuses: Right maxillary sinus mucosal thickening. Right sphenoid sinus mucosal thickening. No air-fluid levels. IMPRESSION: 1. Age-related volume loss and mild small vessel ischemic change. 2. No evidence acute intracranial process. 3. Chronic sinus disease. Dictated by: Amando Luevano M.D. on 03/28/2022 at 8:33 Approved by: Amando Luevano M.D. on 03/28/2022 at 8:36
== END ==
PROVIDERS: PCP Family Medicine; Referring Provider Family Medicine; Visit Provider Family Medicine
DX: R41.3 Other amnesia (principal); J32.8 Other chronic sinusitis
CPT/HCPCS: 70553

== ENCOUNTER → 2022-04-02 07:00 | Outpatient (CLI) | payer OTHER, SELFPAY ==
[2018-09-26 11:25] VITALS: BMI 30.4
--- NOTE | 2022-04-02 07:02 | DI.MRI.S_ITS ---
PROCEDURE: MR LUMBAR SPINE WO CON INDICATIONS: Radiculopathy, lumbar region TECHNIQUE: Noncontrast sagittal T1 spin echo and T2 fast echo, sagittal STIR, and T2 fast spin echo through the lumbar spine. In cases with scoliosis, additional coronal T2 fast spin echo may be performed. COMPARISON: [facility], MR, L-SPINE WITHOUT CONTRAST, 03/05/2009, 19:41. FINDINGS: Image quality: Excellent. Alignment and Curvature: Convex left thoracolumbar scoliosis Bone Marrow: Multilevel degenerative disc disease includes Modic type 1 edematous changes at L1-2 L2-3 Spinal Cord: Conus medullaris terminates at the L1 level. Visualized cord demonstrates normal signal and size. Paraspinous Soft Tissues: No paravertebral masses. T12-L1: Normal appearance. L1-L2: Disc space narrowing with circumferential disc bulge, hypertrophic facet joints and epidural fat combine to result in moderate to severe central stenosis. Severe left and moderate right foraminal stenosis L2-L3: Disc space narrowing with circumferential disc bulge and hypertrophic facet joints combined with dorsal epidural fat to result in severe central stenosis. Severe bilateral foraminal stenosis greater on the right L3-L4: Disc space narrowing with circumferential disc bulge and hypertrophic facet joints combined result in moderate central stenosis. Severe right and mild left foraminal stenosis L4-L5: Disc space narrowing with circumferential disc bulge, hypertrophic facet joints and dorsal epidural fat combined result in moderate to severe central stenosis. Severe right and moderate left foraminal stenosis L5-S1: Disc space narrowing and hypertrophic facet joints combined result in mild central stenosis. Moderate left and mild right foraminal stenosis IMPRESSION: Multilevel degenerative disc disease, arthropathy and thoracolumbar levoscoliosis combined result in varying degrees of central and foraminal stenosis including severe central and foraminal stenosis L2-3 Approved by: Marcell Potter M.D. on 04/03/2022 at 9:32
== END ==
PROVIDERS: PCP Family Medicine; Referring Provider Family Medicine; Visit Provider Family Medicine
DX: M51.16 Intervertebral disc disorders with radiculopathy, lumbar region (principal); M47.26 Other spondylosis with radiculopathy, lumbar region; M48.061 Spinal stenosis, lumbar region without neurogenic claudication; M48.07 Spinal stenosis, lumbosacral region; M41.9 Scoliosis, unspecified
CPT/HCPCS: 72148